=== PATIENT | female | born 1970 | race African-American/Black ===

== ENCOUNTER 2018-12-03 22:12 | Emergency (ER) | payer MEDICAID, OTHER ==
[~2018-12-03] VITALS: Ht 167.6 cm; Wt 99.5 kg
[2018-12-03 22:23] VITALS: BP 164/107
[2018-12-03] MEDS ORDERED: LIDOCAINE 1%, 10ML INFIL ONE (23:00)
[2018-12-03] MEDS ORDERED: LIDOCAINE-MPF 1%, 5ML ONE (23:19)
[2018-12-03] MEDS ORDERED: KETOROLAC 30 MG/1 ML IM ONE (23:30)
[2018-12-03] MEDS ORDERED: KETOROLAC 30 MG/1 ML ONE (23:54)
== END 2018-12-04 00:06 | disposition home or self-care (01) ==
LOC: ED 23:26
DX: L02.413 Cutaneous abscess of right upper limb (principal)
CPT/HCPCS: 10060; 96372; 99283; J1885